=== PATIENT | male | born 1990 | race Caucasian/White ===

== ENCOUNTER 2019-01-22 13:06 | Outpatient (CLI) | payer SELFPAY | END 2019-01-22 13:26 | PROVIDERS: Visit Provider Nurse Practitioner Family | DX: Z02.1 Encounter for pre-employment examination (principal) ==

== ENCOUNTER 2020-09-24 02:10 | Outpatient (REF) | payer OTHER, SELFPAY ==
[2020-09-24 20:40] LABS: COVID-19 RT-PCR UVMMC Result Negative (Negative)
== END 2020-09-24 02:30 ==
LOC: LBO 02:10
PROVIDERS: Visit Provider Nurse Practitioner Family
DX: Z11.52 Encounter for screening for COVID-19 (principal)
CPT/HCPCS: U0003

== ENCOUNTER 2020-11-09 12:02 | Outpatient (CLI) | payer OTHER, SELFPAY ==
--- NOTE | 2020-11-09 | DI.RAD_ITS ---
EXAM: XR KNEE RT 4V AP,LAT,DAYAN,PAT CLINICAL HISTORY: RT KNEE PAIN, M25.561. TECHNIQUE: 2D digital imaging was performed. COMPARISON: No exams were available for comparison FINDINGS: There are postsurgical changes of a prior ACL repair. No acute fracture or dislocation is seen. Per iarticular spurring is seen in the lateral femoral tibial and patellofemoral joints. The joint space s are otherwise well maintained. The bones are normally mineralized. There is a small joint effusio n. The soft tissues are otherwise unremarkable. IMPRESSION: 1. Postsurgical changes of a prior ACL repair. 2. Gxra-bs-igidvthp degenerative changes of the right knee. 3. Small joint effusion. DATA REPOSITORY: RADIATION DOSE DELIVERED:
== END 2020-11-09 12:22 ==
PROVIDERS: Visit Provider Orthopaedic Surgery Sports Medicine
DX: M17.11 Unilateral primary osteoarthritis, right knee (principal); M25.461 Effusion, right knee
CPT/HCPCS: 73564

== ENCOUNTER 2020-11-12 22:35 | Outpatient (CLI) | payer OTHER, SELFPAY ==
--- NOTE | 2020-11-12 | DI.MRI_ITS ---
EXAM: MR LOWER JOINT RT WO CLINICAL HISTORY: S/P ACL RECONSTRUCTION, Z98.890, PAIN, ALLOGRAFT, REMOVAL OF LOOSE BODY. TECHNIQUE: Multiplanar multisequence MRI was performed. COMPARISON: CR XR KNEE RT 4V AP,LAT,DAYAN,PAT from 11/09/2020 CR XR KNEE RT 4V AP,LAT,DAYAN,PAT from 11/09/2020 FINDINGS: the patient is status post ACL repair. The graft appears disrupted. The posterior cruciate ligament , medial and lateral collateral ligaments and extensor mechanism appear intact. There is small joint effusion. No loose body is seen. There is spurring from the femoral condyles. There is severe cho ndromalacia both femoral condyles consent, ext extending down to and involving underlying bone. Ther e is cartilage thinning extending down to bone involving the tibial plateaus. Severe chondromalacia with focal cartilage defects extending down to bone are seen at the patellofemoral joint. The anteri or horn and body of the medial meniscus are diminutive and show degenerative changes. The posterior horn is not seen. The lateral meniscus, particularly posterior horn also appears diminutive and josep pherally displaced, consistent with degenerative changes. There are rounded ossifications seen both anterior and posterior to the posterior cruciate ligament. IMPRESSION: 1. Torn ACL graft. 2. Severe degenerative and/or postsurgical changes of both menisci, particularly the posterior horns . 3. Severe chondro malacia with cartilage defects extending down to bone in both femoral tibial and p atellofemoral joints. DATA REPOSITORY:
== END 2020-11-12 22:55 ==
PROVIDERS: Visit Provider Orthopaedic Surgery Sports Medicine
DX: T84.490A Other mechanical complication of muscle and tendon graft, initial encounter (principal); M94.261 Chondromalacia, right knee
CPT/HCPCS: 73721

== ENCOUNTER 2021-02-01 02:37 | Outpatient (CLI) | payer OTHER, SELFPAY ==
[2021-02-01 10:17] LABS: Source Nasal/Nares
[2021-02-01 13:25] LABS: COVID-19 PCR Negative (Negative)
== END 2021-02-01 02:38 | disposition home or self-care (01) ==
LOC: LBO 02:37
PROVIDERS: Visit Provider Student in an Organized Health Care Education/Training Program
DX: Z20.822 Contact with and (suspected) exposure to COVID-19 (principal); Z01.818 Encounter for other preprocedural examination
CPT/HCPCS: 87635

== ENCOUNTER 2021-02-03 06:14 | Day surgery (SDC) | payer OTHER, SELFPAY ==
[2021-02-03] VITALS (10 sets, daily range): BP systolic 101–122; BP diastolic 53–93; PULSE 73–87; RESP 12–21; TEMP 36.6–37; O2SAT 94–99; BMI 26.9
--- NOTE | 2021-02-03 06:45 | DI.RAD_ITS ---
Exam(s) XR KNEE RT 2V AP,LAT EXAM: XR KNEE RT 2V AP,LAT CLINICAL HISTORY: hardware removal in room 3 TECHNIQUE: 2D and realtime digital imaging was performed. CONTRAST MATERIAL: Refer to procedure report. COMPARISON: CR XR KNEE RT 4V AP,LAT,DAYAN,PAT from 11/09/2020 FINDINGS: Fluoroscopy was provided for Dr. Oconnor during the performance of a right knee arthroscopy and orthop edic hardware removal. Please refer to the procedure report for complete details. Ka,r=1.17 mGy IMPRESSION: RADIATION DOSE DELIVERED:
--- NOTE | 2021-02-03 06:52 | W.ANESPRE ---
General Info Date of Service Date Performed: 02/03/21 Height: 6 ft 3 in Weight: 97.9 kg Body Mass Index (BMI): 26.9 Surgical Procedure: Operation Date: 02/03/21 07:40 Proposed Procedures Side Surgeon p Knee Arthroscopy WITH ANY INDICATION MENISCAL, CHONDRAL, AND SYNOVIAL SURGERY Right Juan Manuel Oconnor MD s Hardware Removal Right Juan Manuel Oconnor MD Meds Allergies and Home Medications Allergies Allergy/AdvReac Type Severity Reaction Status Date / Time suture AdvReac Severe Verified 02/03/21 06:24 hay AdvReac Uncoded 02/03/21 06:24 Home Medication Medication Instructions Recorded pdote-fusjn-qwjzkxw-pramoxine 1 applic TOPICAL BID 02/01/21 [Triple Antibiotic Plus] Current Visit Medications: Current Medications Generic Name Dose Route Start Last Admin Trade Name Freq PRN Reason Stop Dose Admin Ringer's Solution 1,000 mls @ 100 mls/hr 02/03/21 06:00 IV 03/04/21 23:59 INFUSION DORON Cefazolin Sodium/Dextrose 2 gm in 50 mls @ 100 mls/hr 02/03/21 06:00 Ancef Duplex IVPB 02/03/21 16:00 PREOP DORON IV Miscellaneous Supplies 1 each 02/03/21 06:00 Iv Access IV 03/04/21 23:59 DIRECTED DORON Sodium Chloride 0 ml 02/03/21 06:00 Normal Saline Flush 10 Ml Syr IV 03/04/21 23:59 PRN PRN Sodium Chloride 0 ml 02/03/21 06:00 Normal Saline 10 Ml Vial IJ 03/04/21 23:59 DIRECTED PRN Sterile Water 0 ml 02/03/21 06:00 Water,Injection,Sterile 10 Ml Vial IJ 03/04/21 23:59 DIRECTED PRN PFSH Active Problems Active Problems: Problem Status Onset Code Encounter for screening for other viral diseases Z11.59 S/P ACL reconstruction Z98.890 Loose body in knee, right knee M23.41 Articular cartilage disorder of right knee M23.91 Right ACL tear S83.511A Retained orthopedic hardware Z96.9 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 History of knee surgery right Tobacco Smoking/Tobacco Use Status: Former Tobacco Use Alcohol Alcohol Intake: current Alcohol intake frequency: holidays/special occasions only Substance Use Substance use type: does not use Vital Signs and Lab Results Vital Signs Most Recent Vital Signs in EMR: Most Recent Vital Signs Temp Pulse Resp BP Pulse Ox 37 C 87 16 113/72 97 02/03/21 06:31 02/03/21 06:31 02/03/21 06:31 02/03/21 06:31 02/03/21 06:31 Lab Results Blood Type / Crossmatch: No Data to Display Complete Blood Count: No Data to Display Complete Metabolic Panel: No Data to Display Liver Function Panel: No Data to Display Coagulation Panel: No Data to Display Cardiac Panel: No Data to Display Arterial Blood Gas: No Data to Display Venous Blood Gas: No Data to Display Pancreas Panel: No Data to Display Thyroid Panel: No Data to Display Infectious Disease: Coronavirus (COVID-19)(PCR) Negative (Negative) 02/01/21 08:26 02/01/21 Coronavirus 2019 Source Nasal/nares 02/01/21 08:26 02/01/21 Blood Cultures: No Data to Display Toxicology Panel: No Data to Display Anesthesia Assessment and Plan Anesthesia History Personal History: No History of Anesthesia Complications Family History: No Family History of Anesthesia Complications Exercise Tolerance Exercise Tolerance: Metabolic Equivalents>4 Pertinent Negatives Pertinent Negatives: No Symptoms of GERD, No Major Cardiovascular Symptoms or Complaints, No Major Pulmonary Symptoms or Complaints and No History of CVA/TIA Cardiac & Pulmonary Exam Cardiac Exam: Normal S1/S2 Heart Sounds Pulmonary Exam: Clear Bilateral Breath Sounds Airway Exam Known Difficult Airway: No Mallampati Class: 1 Mouth Opening: Normal (> 3cm) Thyromental Distance: Greater than 3 cm Neck Range of Motion: Full ROM Neck Circumference: Normal Teeth Condition: Normal Dentition ASA Classification ASA Score: ASA 2 Emergency Case?: No NPO Status NPO Status: NPO Clears >2 hours, Solids >8 hours Anesthesia Plan Resuscitation Status: Full Code Anesthesia Technique: General Anesthesia Airway Planned: LMA Pain Management: Surgeon and patient request nerve block Monitors Used: Standard Monitors
[2021-02-03] MEDS: Lactated Ringers 1,000 ML 100 ML IV (07:05)
--- NOTE | 2021-02-03 07:57 | W.ANESNERVE ---
Nerve Block Single Injection Procedure Date and Time Date Performed: 02/03/21 Procedure Start: 07:15 Location Where Procedure Performed Procedure Location: PACU Reason Performed: Postoperative Analgesia Requesting Provider: Elvin Timeout Performed Timeout Performed: Yes Monitoring Used ECG, Blood Pressure, SpO2 and ETCO2 Sterility Sterility: Hand Hygiene, Surgical Cap, Surgical Mask, Sterile Gloves, Eye Protection and Chlorhexidine Sedation Given During Procedure Sedation Given (Indicate Dose Given): Versed IV Dose:: 2 mg Patient Mental Status Patient Mental Status: Sedate with meaningful communication Nerve Block 1st Nerve Block: Laterality: Right Block Type: Femoral Needle / Catheter Used: 100mm SonoPlex II Local Anesthetic Bolus (Indicate Dose Given): Lidocaine used for local infiltration of skin (2 cc), Bupivacaine 0.5% Dose:: 10 cc and Exparel Dose:: 10 cc Additives (Indicate Dose Given): None Ultrasound: Sterile probe cover and gel used Ultrasound Image Saved?: Yes Nerve Stimulator: Not Used Paresthesia: None Procedure Tolerated: No Complications and Patient tolerated well Procedure Outcome: Successful Performed By: Matthew Hairston
[2021-02-03] MEDS: ceFAZolin 2 GM/50 ML BAG IVPB (08:28)
[2021-02-03] MEDS: EPINEPHrine 30 MG/30 ML VIAL (10:00)
--- NOTE | 2021-02-03 10:40 | W.PM.DSUDISC ---
Discharge Plan Disposition Patient Disposition: HOME Condition: Stable Discharge Details Reason For Visit: ACL TEAR,CHRONDROMALACIA,SYNOVITIS LOOSE BODIES Attending Provider: Juan Manuel Oconnor Primary Care Provider: None,None Home Meds and New Rx's Prescriptions: New naproxen 250 mg tablet 250 - 500 mg PO BID PRN (Reason: Moderate pain or swelling) Qty: 60 RF: 0 aspirin 81 mg tablet,delayed release (DR/EC) 81 mg PO DAILY 14 Days Qty: 14 RF: 0 oxycodone 5 mg tablet 5 - 10 mg PO Q4H PRN (Reason: moderate to severe pain) Qty: 22 RF: 0 Continued cdsob-ffycg-llhenpf-pramoxine Ointment 1 applic TOPICAL BID RF: 0 Discharge Instructions Additional Instructions: Surgery: Right knee arthroscopy with extensive debridement including synovectomy, chondroplasty, osteoplasty, removal of loose body, and tibial removal of hardware with ACL tunnel curettage and bone grafting Activity: Protected weightbearing with crutches for 2 weeks. Recommend ice and elevation to minimize swelling and discomfort. Gently advance range of motion. A physical therapy prescription will be provided separately in the office at follow-up if needed. Prescriptions: Aspirin 81 mg take 1 daily to prevent a blood clot for 2 weeks Naproxen 250 mg take 1-2 every 12 hours with a meal as needed for moderate pain Oxycodone 5 mg take 1-2 every 4-6 hours as needed for severe pain You may use vptz-cvu-pivmdto Tylenol (acetaminophen) as needed for mild pain. These pain medications may be taken all at once or in different combinations as needed. Also, recommend Colace (docusate) as a stool softener as surgery and pain medicine cause constipation. Dressings: Leave dressing in place for 3 days. May then remove and leave open to air or cover incisions with Band-Aids. May shower after 5 days. Follow-up: 10-[address] Oconnor Let us know right away if you develop any redness, drainage, fevers, chest pain, or trouble breathing. Do not drink alcohol or drive for at least 24 hours after anesthesia. Please call the office during business hours with any questions or concerns. Referrals: Juan Manuel Oconnor MD [ [facility] STAFF PHYSICIAN] - Discharge Orders Discharge Orders: Discharge Order (Routine); Ordered 02/03/21 Ordered By: Juan Manuel Oconnor DS: Diagnosis Discharge Diagnosis (1) S/P ACL reconstruction: Status: Acute (2) Loose body in knee, right knee: Status: Acute (3) Articular cartilage disorder of right knee: Status: Acute (4) Right ACL tear: Status: Acute (5) Retained orthopedic hardware: Status: Acute (6) Bone cyst of right tibia: Status: Acute (7) Bone cyst of right femur: Status: Acute
--- NOTE | 2021-02-03 11:13 | ROE_ITS ---
Date of service: 02/03/21 Time of Service: 08:00 Operative Note Operative Note DATE OF PROCEDURE: 02/03/21 PRE-OP DIAGNOSIS: Right knee 1. Lateral meniscus tear 2. Synovitis 3. Chondromalacia 4. Osteophytes 5. Retained orthopedic hardware femur 6. Retained orthopedic hardware tibia 7. Bone cyst tibia 8. Intra-articular loose body 9. Prior revision ACL reconstruction POST-OP DIAGNOSIS: same PROCEDURE: Right knee 1. Partial lateral meniscectomy, CPT #21512: Debridement of mild body and anterior horn fraying 2. Greater than 2 compartment synovectomy, CPT #62402: Medial, lateral, intercondylar, and patellofemoral 3. Chondroplasty and osteoplasty, CPT #21898: Chondroplasty medial femoral condyle, trochlea, and patella; Osteoplasty intercondylar 4. Curettage of benign tibial bone cyst with allograft bone grafting, CPT #29256 5. Removal of deep implanted hardware, CPT [place] [id number]: Proximal tibia screw and post SURGEON: Juan Manuel Oconnor EMBEDDED FIRMWARE ENGINEER: Vinny Sena Refer to Anesthesia Record PATHOLOGY: none sent TOURNIQUET TIME: 0 Patient was transported to: PACU Patient's condition: stable Indications: Please see complete medical record for details. Findings: Exam under anesthesia: Full range of motion. Stable Anjelica and anterior drawer testing with reasonable translation and solid endpoint. Minimal pivot glide. Stable posterior drawer. Stable varus valgus stress. Arthroscopic findings: Large 1.5 x 1.5 cm osteochondral loose body suprapatellar pouch. Mild suprapatellar pouch adhesions. Mild synovitis throughout. Moderate and diffuse chondromalacia with grades 2?3 changes undersurface of the patella, grade 3?4 trochlea, grade 3?4 medial femoral condyle distal and anterior, with grade 1?2 lateral compartment. Significant intercondylar osteophytes with impingement of the lateral femoral condyle on ACL graft. Prior ACL graft with moderate fraying about the tibial origin with some impingement in full extension due to intercondylar osteophytes and moderate laxity under probing, but intact at both femoral and tibial attachment sites without any full-thickness tearing. ACL reconstruction trajectory somewhat abnormal with likely lateral position in the intercondylar region as opposed to crossing from lateral femoral condyle to medial intercondylar region likely causing some of the impingement on the lateral femoral condyle distally No visible femoral interference screw. Open findings: Prominent screw and post anterior tibia with retained FiberWire. Bone cyst prominently dilated tibial ACL tunnel with only small aperture into the joint due to majority intact healing at the graft joint interface. Procedure Description: In the operating room, genral anesthesia was induced. The patient was positioned supine on the operating room table. All bony prominences were well-padded. Preoperative antibiotics were held pending cultures. The knee was prepped and draped in the usual sterile fashion. The correct patient, procedure, and side of the procedure were all verified prior to incision. Exam under anesthesia was performed. 10 cc of 0.5% bupivacaine containing epinephrine was infiltrated about the planned anteromedial, anterolateral, and pretibial knee arthroscopy portals and scars. The portals were established and a complete diagnostic arthroscopy was performed with relevant findings detailed above. A pituitary rongeur was used to obtain tissue samples from the frayed torn lateral aspect of the ACL graft. It was passed onto the back table into a specimen cup and sent to the lab for stat Gram stain followed by routine culture and anaerobic cultures. The knee did not have the appearance of any infection. The ACL graft was not hemorrhagic or inflammatory, but appeared mechanically frayed due to impingement on the lateral femoral condyle from likely lateral tibial placement. Knee ACL graft was carefully and only minimally shaved of frayed grimes tissue at its lateral distal aspect. 4.2 mm curved mechanical shaver was then used to complete an extensive synovectomy of the intercondylar region, medial and lateral compartments including gutters, and patellofemoral space. Mild suprapatellar pouch adhesions were removed exposing a large osteochondral loose body. Loose body was grasped with a pituitary rongeur and under direct visualization carefully removed from the joint. In the ihnoko-hw-hgse position lateral compartment expose mild lateral meniscus remnant anterior horn and meniscal body frame, which was easily removed to a stable margin with the mechanical shaver. Once all scar tissue, adhesions, synovitis was cleared, the shaver was switched to a 5.0 and was used to smooth, remove, and recreate normal anatomy as best possible especially in the intercondylar region removing significant medial and lateral femoral condyle marginal osteophytes as well as at the superior part of the intercondylar notch opening up the space for the ACL graft and ensuring no impingement in full extension. The knee was drained of arthroscopic fluid and attention was turned to the tibial hardware removal. C arm fluoroscopy used to localize the prominent screw head. The prior incision was opened over the screw head only a few centimeters. The incision was carried down to visible hardware which is cleared of soft tissue attachments and the appropriate 2.5 mm hex screwdriver was carefully threaded and used to easily remove the screw in its entirety. A small curette was used to gently rest this tunnel. The FiberWire from the graft the post was also visualized and removed flush with bone. A Nichole switching stick was then used to localize the tibial dilated bone tunnel. There were no signs of infection at the tibial hardware site. With the arthroscope in the joint Nichole switching stick was visualized. A small curette was then used to assess the tunnel margins and probed the articular aspect of tissue attachment. Besides the tiny aperture for the switching stick there is relative covering of the tibial attachment ACL graft over the dilated tunnel. Using fluoroscopic guidance curettes of various angles and sizes were used to curette scar tissue and abrade the bone cyst carvajal to optimize healing taking care not to penetrate into the joint. Attention was then turned back in the joint, and with the notchplasty and intercondylar space was opened up, the arthroscope was redirected to the posterior medial and posterior lateral aspects of the knee, which did not reveal any additional pathology or loose bodies. Attention was then turned to the cartilage lesions that were most significant present on the medial femoral condyle and central trochlea. Probe was used to expose unstable near?full- thickness cartilage flaps on both lesions of the medial femoral condyle and the trochlea. A combination of hand instruments and small mechanical shaver used to debride the cartilage only as much as necessary to a stable margin. The undersurface the patella had diffuse articular fraying and this was trimmed as well to a stable margin. The ACL graft was inspected once again now had much more appropriate room especially on his lateral side. Had been debrided to a stable somewhat healthy although mildly lax margin. Decision was made to leave it in place given stability on knee exam and no additional impingement. The 70 degree scope was brought in to view the femoral tunnel site, which did not reveal any abnormality or prominent hardware so decision was made not to take down the femoral attachment of the ACL to find or remove this hardware given seemingly unlikely chance of requiring future revision ACL surgery. A Sanchez was brought in and a 70 degree boat was used to cover the small aperture of the tibial tunnel bilateral ACL attachment. Using combination arthroscopic confirmation and C arm guidance the DBX inject bone graft was backfilled into the tibial tunnel from proximal to distal using pressurization to guide appropriate bone grafting. There is no bone graft extravasation to the joint. Excess bone graft was removed from the pretibial area. Gram stain results were negative. No additional irrigation debridement was performed. Under direct arthroscopic visualization an 18-gauge needle was passed into the knee from superolateral into the suprapatellar pouch. The knee was copiously irrigated with arthroscopic fluid until there was a clear effluent before being drained of all fluid. The anteromedial and anterolateral portals were closed in 3-0 Monocryl in a buried interrupted fashion. 10 cc of 0.5% bupivacaine with epinephrine containing 2 mg of morphine was infiltrated into the knee through the previously placed needle. The mini open hardware removal bone grafting site was copiously irrigated with normal saline. A single deep 2-0 Monocryl stitch was used to close deep tissue over the bone followed by a pair of 3 oh buried interrupted Monocryl stitches. Mastisol, Steri-Strips, and 4 x 4 gauze were applied over the incisions followed by sterile soft roll. The knee was then wrapped gently with an DEBORAH comressive bandage. The patient awoke from anesthesia without complication and was transferred to the recovery room in a stable condition.
--- NOTE | 2021-02-03 13:26 | W.ANESPOSTOP ---
Postoperative Evaluation Date, Time and Location Date Performed: 02/03/21 Time Performed: 13:27 Patient Location: Day Surgery Unit Vital Signs Most Recent Imported Vital Signs: Most Recent Vital Signs Temp Pulse Resp BP Pulse Ox 36.6 C 74 16 118/77 98 02/03/21 12:26 02/03/21 12:26 02/03/21 12:26 02/03/21 12:02/03/21 12:26 Pain Score Most Recent Pain Score: Most Recent Pain Score Pain Level 0 02/03/21 12:26 3-4 Assessment Mental Status: Awake (Alert & Oriented to Patient Baseline) Airway and Respiratory Function: Patent airway with normal (patient baseline) respiratory exam Cardiovascular Function: Hemodynamically Stable Hydration Status: Adequately Hydrated Nausea & Vomiting: No Nausea or Vomiting Pain: Pain is tolerable/mild (<5/10) Peripheral Nerve Block: Regional nerve block not resolved at time of post operative discharge Teaching Patient Teaching: Discussed Safe Use of Pain Medication Given Recent Anesthesia
== END 2021-02-03 13:20 | disposition home or self-care (01) ==
PROVIDERS: Visit Provider Student in an Organized Health Care Education/Training Program
PROC: (CPT 29870; principal; 2021-02-03 07:30)
PROC: (CPT 27638; 2021-02-03 07:30)
DX: S83.281A Other tear of lateral meniscus, current injury, right knee, initial encounter (principal); M23.41 Loose body in knee, right knee; M23.8X1 Other internal derangements of right knee; Z47.2 Encounter for removal of internal fixation device; M65.861 Other synovitis and tenosynovitis, right lower leg; M94.261 Chondromalacia, right knee; M85.461 Solitary bone cyst, right tibia and fibula; Z98.890 Other specified postprocedural states; G89.18 Other acute postprocedural pain; X58.XXXA Exposure to other specified factors, initial encounter
CPT/HCPCS: 27638; 29876; 29881; 20680; 73560; 87070; 87075; 87205; J0131; J0690; J1100; J1885; J2001; J2250; J2405